=== PATIENT | male | born 1940 | race Caucasian/White ===

== ENCOUNTER 2025-01-20 08:57 | Inpatient (IN) | payer MEDICARE ==
[2025-01-20] MEDS: Sodium Chloride 0.9% 1,000 ML IV ONE ×3 (09:39→12:21)
[2025-01-20 09:47] LABS: BASOPHILS ABSOLUTE AUTO 0.02 K/uL (0.00-0.10); BASOPHILS PERCENT AUTO 0.1 % (0.1-1.3); EOSINOPHILS ABSOLUTE AUTO 0.03 K/uL (0.00-0.40); EOSINOPHILS PERCENT AUTO 0.2 % (0.0-5.4); HEMATOCRIT 44.6 % (38.4-49.7); HEMOGLOBIN 14.9 g/dL (12.9-16.9); IMMATURE GRAN ABSOLUTE AUTO 0.07 K/uL (0.00-0.23); IMMATURE GRAN PERCENT AUTO 0.5 % (0.0-0.7); LYMPHOCYTES ABSOLUTE AUTO 0.35 K/uL (0.8-3.3); LYMPHOCYTES PERCENT AUTO 2.6 % (11.4-47.7); MEAN CORPUSCULAR HGB CONC 33.4 g/dL (31.6-35.5); MEAN CORPUSCULAR VOLUME 92.7 fL (81.4-99.0); MONOCYTES ABSOLUTE AUTO 1.01 K/uL (0.20-0.90); MONOCYTES PERCENT AUTO 7.5 % (3.3-12.6); NEUTROPHILS PERCENT AUTO 89.1 % (40.0-78.1); PLATELET COUNT,PLT 195 K/uL (130-375); RED BLOOD CELL COUNT 4.81 M/uL (4.14-5.76); WHITE BLOOD CELL COUNT,WBC 13.5 K/uL (3.2-11.0)
[2025-01-20 09:53] LABS: INR 1.2; PROTHROMBIN TIME 11.7 sec (9.2-10.6)
[2025-01-20 09:57] LABS: ALANINE AMINOTRANSFERASE,ALT 17 U/L (12-78); ALBUMIN 3.4 g/dL (3.4-5.0); ALKALINE PHOSPHATASE 97 U/L (46-116); ASPARTATE AMNIOTRANSFERASE,AST 12 U/L (15-37); BILIRUBIN TOTAL 0.8 mg/dL (0.2-1.0); BLOOD UREA NITROGEN,BUN 20 mg/dL (7-18); CALCIUM 8.9 mg/dL (8.5-10.1); CARBON DIOXIDE,CO2 24 mmol/L (21-32); CHLORIDE,CL 105 mmol/L (100-108); CREATININE 1.1 mg/dL (0.8-1.3); EST CRCL DRUG DOSING (CG) 54.48 mL/min; ESTIMATED GFR 65 mL/min (>60); GLUCOSE RANDOM 123 mg/dL (74-106); POTASSIUM,K 3.7 mmol/L (3.6-5.2); PROTEIN TOTAL,TP 6.9 g/dL (6.4-8.2); SODIUM,NA 142 mmol/L (140-148)
[2025-01-20] MEDS: Acetaminophen 325 MG Tab PO ONE (11:32)
[2025-01-20 11:34] LABS: APPEARANCE,URINE CLEAR (CLEAR); BILIRUBIN,URINE NEGATIVE (NEGATIVE); COLOR,URINE YELLOW (YELLOW); GLUCOSE,URINE NEGATIVE (NEGATIVE); KETONES,URINE NEGATIVE (NEGATIVE); LEUKOCYTE ESTERASE,URINE NEGATIVE (NEGATIVE); NITRITE,URINE NEGATIVE (NEGATIVE); OCCULT BLOOD,URINE SMALL (NEGATIVE); PH,URINE 5.5 (5.0-8.0); PROTEIN,URINE NEGATIVE (NEGATIVE); UROBILINOGEN,URINE 0.2 EU/dL (0.2-1.0)
[2025-01-20 11:48] LABS: AMORPHOUS SEDIMENT,URINE RARE; BACTERIA,URINE NOT SEEN; EPITHELIAL CELLS,URINE NOT SEEN; MUCUS,URINE NOT SEEN; RBC,URINE 0-5 (0-5); WBC,URINE NOT SEEN (0-5)
[2025-01-20] MEDS: Ciprofloxacin in D5W 400 MG in Premix Bag 1 BAG IV ONE (13:44)
[2025-01-20] MEDS: metroNIDAZOLE/Normal Saline 500 MG in Premix Bag 1 BAG IV ONE (14:59)
[2025-01-20] MEDS: diphenhydrAMINE 50 MG/ML SDV IVPUSH ONE (15:02)
[2025-01-20] MEDS ORDERED: oxyCODONE 5 MG Tab PO PRN (15:30)
[2025-01-20] MEDS ORDERED: Ondansetron 4 MG/2 ML SDV IV PRN (15:30)
[2025-01-20] MEDS ORDERED: Ciprofloxacin in D5W 400 MG in Premix Bag 1 BAG IV SCH (15:30)
[2025-01-20] MEDS ORDERED: Sodium Chloride 0.9% 10 ML Syringe FLUSH PRN (15:30)
[2025-01-20] MEDS: Sodium Chloride 0.9% 1,000 ML IV SCH (15:45)
[2025-01-20] MEDS: Enoxaparin 40 MG/0.4 ML Syringe SUBCUT SCH (17:15)
[2025-01-20] MEDS: Ampicillin/Sulbactam Na 1.5 GM in Sodium Chloride 0.9% 50 ML IV SCH (17:19)
[2025-01-20] MEDS: Acetaminophen 325 MG Tab PO PRN (17:58)
[2025-01-20] MEDS: Iopamidol 612 MG/ML 100 ML Bottle IV ONE (18:14)
[2025-01-20] MEDS: Sodium Chloride 0.9% 10 ML Syringe FLUSH ONE (20:39)
[2025-01-20] MEDS: Sodium Chloride 0.9% 100 ML IV ONE (20:39)
[2025-01-20] MEDS ORDERED: metroNIDAZOLE/Normal Saline 500 MG in Premix Bag 1 BAG IV SCH (23:00)
[2025-01-21 05:57] LABS: BASOPHILS PERCENT AUTO 0.2 % (0.1-1.3); EOSINOPHILS PERCENT AUTO 0.2 % (0.0-5.4); HEMATOCRIT 38.4 % (38.4-49.7); HEMOGLOBIN 13.2 g/dL (12.9-16.9); IMMATURE GRAN ABSOLUTE AUTO 0.05 K/uL (0.00-0.23); IMMATURE GRAN PERCENT AUTO 0.5 % (0.0-0.7); LYMPHOCYTES ABSOLUTE AUTO 0.44 K/uL (0.8-3.3); LYMPHOCYTES PERCENT AUTO 4.6 % (11.4-47.7); MEAN CORPUSCULAR HEMOGLOBIN 31.6 pg (31.6-35.5); MEAN CORPUSCULAR HGB CONC 34.4 g/dL (31.6-35.5); MEAN CORPUSCULAR VOLUME 91.9 fL (81.4-99.0); MONOCYTES ABSOLUTE AUTO 0.67 K/uL (0.20-0.90); NEUTROPHILS ABSOLUTE AUTO 8.44 K/uL (1.0-7.6); NEUTROPHILS PERCENT AUTO 87.5 % (40.0-78.1); PLATELET COUNT,PLT 160 K/uL (130-375); RED BLOOD CELL COUNT 4.18 M/uL (4.14-5.76); WHITE BLOOD CELL COUNT,WBC 9.6 K/uL (3.2-11.0)
[2025-01-21 06:12] LABS: CALCIUM 8.1 mg/dL (8.5-10.1); CREATININE 0.8 mg/dL (0.8-1.3); EST CRCL DRUG DOSING (CG) 74.91 mL/min; MAGNESIUM 1.3 mg/dL (1.8-2.4)
[2025-01-21 06:21] LABS: ANION GAP 13.9 mmol/L (5.0-14.0); POTASSIUM,K 2.9 mmol/L (3.6-5.2)
[2025-01-21 06:22] LABS: BASOPHILS ABSOLUTE AUTO 0.02 K/uL (0.00-0.10); EOSINOPHILS ABSOLUTE AUTO 0.02 K/uL (0.00-0.40)
[2025-01-21] MEDS: Potassium Chloride 20 MEQ Tab.ER PO ONE ×2 (06:41→13:04)
[2025-01-21] MEDS: Pantoprazole 40 MG Tab.CR PO SCH (07:51)
[2025-01-21] MEDS ORDERED: Non-Formulary Medication 1 Each (Omeprazole Magnesium [Prilosec Otc] 20 MG Tablet.Dr) PO SCH (09:00)
[2025-01-21] MEDS: Magnesium Sulfate 2 GM/50 mL 2 GM in Premix Bag 1 BAG IV SCH ×2 (09:24→10:59)
[2025-01-21] MEDS: Losartan 50 MG Tab PO SCH (09:29)
[2025-01-21] MEDS: Magnesium Oxide 400 MG Tab PO SCH (09:30)
[2025-01-22 05:29] VITALS: PULSE 64
[2025-01-22 05:56] LABS: CALCIUM 8.1 mg/dL (8.5-10.1); CREATININE 0.7 mg/dL (0.8-1.3); EST CRCL DRUG DOSING (CG) 85.61 mL/min; MAGNESIUM 2.4 mg/dL (1.8-2.4)
[2025-01-22 06:07] LABS: ANION GAP 10.9 mmol/L (5.0-14.0); POTASSIUM,K 2.9 mmol/L (3.6-5.2)
[2025-01-22] MEDS: Potassium Chloride 20 MEQ Tab.ER PO ONE ×3 (07:42→11:40)
[2025-01-22 10:25] VITALS: BP 127/72
[2025-01-22] MEDS: Dimethicone 20%/Zinc Oxide 25% 56 GM Spray Bottle TOP PRN (11:13)
[2025-01-23 07:27] LABS: NOROVIRUS 1 BY PCR Not Detected; NOROVIRUS 2 BY PCR Not Detected
== END 2025-01-22 12:34 | disposition home or self-care (01) | DRG 392 ==
LOC: JP.ED 08:57 → JP.MS 13:39
PROVIDERS: ADMIT Hospitalist; ATTEND Hospitalist
DX: K52.9 Noninfective gastroenteritis and colitis, unspecified (principal); H54.7 Unspecified visual loss; E78.00 Pure hypercholesterolemia, unspecified; I10 Essential (primary) hypertension; M19.90 Unspecified osteoarthritis, unspecified site; E86.0 Dehydration; K21.9 Gastro-esophageal reflux disease without esophagitis; G43.909 Migraine, unspecified, not intractable, without status migrainosus; Z98.49 Cataract extraction status, unspecified eye; Z98.890 Other specified postprocedural states; Z79.899 Other long term (current) drug therapy
CPT/HCPCS: 36415; 74177 ×2; 80053; 81001; 83605; 85025; 85610; 87046; 87077; 87427 ×2; 87493; 87798 ×2; A9270; J7030 ×3; 80048; 83735; 96360; 96361; 97161-GP; 99222; 99231; 99238; 99285-25; J0295; J0744; J1200; J1650; J1836; J3475

== ENCOUNTER 2025-06-17 11:35 | Emergency (ER) | payer MEDICARE ==
[2025-06-17 14:09] LABS: APPEARANCE,URINE CLEAR (CLEAR); GLUCOSE,URINE NEGATIVE (NEGATIVE); OCCULT BLOOD,URINE NEGATIVE (NEGATIVE)
[2025-06-17 14:12] LABS: BASOPHILS ABSOLUTE AUTO 0.03 K/uL (0.00-0.10); BASOPHILS PERCENT AUTO 0.5 % (0.1-1.3); EOSINOPHILS ABSOLUTE AUTO 0.17 K/uL (0.00-0.40); EOSINOPHILS PERCENT AUTO 2.7 % (0.0-5.4); IMMATURE GRAN PERCENT AUTO 0.3 % (0.0-0.7); LYMPHOCYTES ABSOLUTE AUTO 0.70 K/uL (0.8-3.3); LYMPHOCYTES PERCENT AUTO 11.1 % (11.4-47.7); MONOCYTES ABSOLUTE AUTO 0.69 K/uL (0.20-0.90); MONOCYTES PERCENT AUTO 10.9 % (3.3-12.6); NEUTROPHILS ABSOLUTE AUTO 4.71 K/uL (1.0-7.6); NEUTROPHILS PERCENT AUTO 74.5 % (40.0-78.1); PLATELET COUNT,PLT 214 K/uL (130-375); RED BLOOD CELL COUNT 4.71 M/uL (4.14-5.76); WHITE BLOOD CELL COUNT,WBC 6.3 K/uL (3.2-11.0)
[2025-06-17 14:21] LABS: IMMATURE GRAN ABSOLUTE AUTO 0.02 K/uL (0.00-0.23)
[2025-06-17 14:37] LABS: A/G RATIO 1.1 (1.2-2.2); ALANINE AMINOTRANSFERASE,ALT 18 U/L (12-78); ASPARTATE AMNIOTRANSFERASE,AST 14 U/L (15-37); BILIRUBIN TOTAL 0.7 mg/dL (0.2-1.0); BLOOD UREA NITROGEN,BUN 12 mg/dL (7-18); CARBON DIOXIDE,CO2 30 mmol/L (21-32); CHLORIDE,CL 102 mmol/L (100-108); CREATININE 0.9 mg/dL (0.8-1.3); EST CRCL DRUG DOSING (CG) 66.58 mL/min; ESTIMATED GFR 83 mL/min (>60); GLUCOSE RANDOM 102 mg/dL (74-106); POTASSIUM,K 4.0 mmol/L (3.6-5.2); PROTEIN TOTAL,TP 6.6 g/dL (6.4-8.2); SODIUM,NA 140 mmol/L (140-148)
[2025-06-17 14:46] LABS: T4 FREE 1.04 ng/dL (0.76-1.46); TROPONIN I HIGH SENSITIVITY 9.6 pg/mL (<=60.3); TSH ULTRASENSITIVE 4.2 uIU/mL (0.358-3.740)
[2025-06-17 16:04] VITALS: BP 151/94; PULSE 86
== END 2025-06-17 16:22 | disposition home or self-care (01) ==
LOC: JP.ED 11:35
DX: E03.9 Hypothyroidism, unspecified (principal); I10 Essential (primary) hypertension; Z88.1 Allergy status to other antibiotic agents; Z79.899 Other long term (current) drug therapy; Z87.891 Personal history of nicotine dependence
CPT/HCPCS: 36415; 71046; 71046-26; 80053; 81003; 84439; 84443; 84484; 85025; 86140; 86618; 87468; 87469; 87484; 87798; 93005; 99285